=== PATIENT | male | born 1965 | race Caucasian/White ===

== ENCOUNTER 2018-10-29 01:38 | Emergency (ER) | payer OTHER ==
[2018-10-29 01:42] VITALS: BP 169/113
--- NOTE | 2018-10-29 01:43 | ER Report ---
History and Physical Time Seen By MD: 01:43 HPI/ROS CHIEF COMPLAINT: Burning with urination HISTORY OF PRESENT ILLNESS: 33 year-old male presents to the ER with hematuria. Patient was seen at urgent care earlier and had a urinalysis done which was unremarkable for evidence of infection. Patient has continued urinary burning. He states pain during urination. He notes rissa clots and hematuria. She notes no fever or chills. Patient denies back pain. Patient denies nausea or vomiting. REVIEW OF SYSTEMS: Respiratory: No cough, no dyspnea. Cardiovascular: No chest pain, no palpitations. Gastrointestinal: No vomiting, no abdominal pain. Musculoskeletal: No back pain. Allergies: Coded Allergies: No Known Drug Allergies (Unverified , 10/29/18) Home Meds Active Scripts Phenazopyridine Hcl (PHENAZOPYRIDINE HCL) 200 Mg Tablet, 200 MG PO TID PRN for urinary burning, #12 TAB Prov:MARCUS DAI DO 10/29/18 Cefuroxime Axetil (CEFUROXIME) 500 Mg Tablet, 500 MG PO BID for infection, #14 TAB Prov:MARCUS DAI 10/29/18 Hydrocodone Bit/Acetaminophen (HYDROCODON-ACETAMINOPHEN 5-325) 1 Each Tablet, 1 EACH PO Q4-6H PRN for PAIN, #8 TAKE ONE TABLET BY MOUTH EVERY 4-6 HOURS NEEDED FOR PAIN Prov:MARCUS DAI 10/29/18 Reviewed Nurses Notes: Yes Old Medical Records Reviewed: Yes Constitutional Vital Sign - Last 24 Hours 10/29/18 01:42 Temp 98.6 Pulse 94 Resp 16 B/P (MAP) 169/113 Pulse Ox 93 O2 Delivery Room Air Physical Exam General appearance: Alert no distress. Vital signs stable, afebrile, pulse ox normal Respiratory: Chest is non tender, lungs are clear to auscultation. Cardiac: Regular rate and rhythm Genitourinary, circumcised male genitalia without meatal redness or discharge. No testicular pain. There is a small right inguinal hernia. There is no tenderness on palpation of the shaft of the penis. DIFFERENTIAL DIAGNOSIS: After history and physical exam differential diagnosis was considered for urinary tract infection, renal stone, bladder cancer Medical Decision Making Data Points Laboratory Hematology Test 10/29/18 00:00 Urine Color Kathryn Urine Clarity Cloudy Urine pH 5.0 pH (4.8-9.5) Urine Specific [place] 1.019 Urine Protein 100 mg/dL (NEGATIVE) Urine Glucose (UA) Negative mg/dL (NEGATIVE) Urine Ketones Negative mg/dL (NEGATIVE) Urine Blood Large (NEGATIVE) Urine Nitrite Positive (NEGATIVE) Urine Bilirubin Negative (NEGATIVE) Urine Urobilinogen Negative mg/dL (0.2-1.9) Urine Leukocyte Esterase Large (NEGATIVE) Urine RBC 1904 /HPF (0-2/HPF) Urine WBC 861 /HPF (0-5/HPF) Urine WBC Clumps Many /HPF Urine Squamous Epithelial Cells None /LPF (</=FEW) Urine Transitional Epithelial Cells Many /LPF (NONE-FEW) Urine Bacteria Moderate /HPF (NONE-FEW) Urine Mucus Few /HPF (NONE-FEW) Chemistry Test 10/29/18 00:00 Urine Color Kathryn Urine Clarity Cloudy Urine pH 5.0 pH (4.8-9.5) Urine Specific [place] 1.019 Urine Protein 100 mg/dL (NEGATIVE) Urine Glucose (UA) Negative mg/dL (NEGATIVE) Urine Ketones Negative mg/dL (NEGATIVE) Urine Blood Large (NEGATIVE) Urine Nitrite Positive (NEGATIVE) Urine Bilirubin Negative (NEGATIVE) Urine Urobilinogen Negative mg/dL (0.2-1.9) Urine Leukocyte Esterase Large (NEGATIVE) Urine RBC 1904 /HPF (0-2/HPF) Urine WBC 861 /HPF (0-5/HPF) Urine WBC Clumps Many /HPF Urine Squamous Epithelial Cells None /LPF (</=FEW) Urine Transitional Epithelial Cells Many /LPF (NONE-FEW) Urine Bacteria Moderate /HPF (NONE-FEW) Urine Mucus Few /HPF (NONE-FEW) Urinalysis Test 10/29/18 00:00 Urine Color Kathryn Urine Clarity Cloudy Urine pH 5.0 pH (4.8-9.5) Urine Specific [place] 1.019 Urine Protein 100 mg/dL (NEGATIVE) Urine Glucose (UA) Negative mg/dL (NEGATIVE) Urine Ketones Negative mg/dL (NEGATIVE) Urine Blood Large (NEGATIVE) Urine Nitrite Positive (NEGATIVE) Urine Bilirubin Negative (NEGATIVE) Urine Urobilinogen Negative mg/dL (0.2-1.9) Urine Leukocyte Esterase Large (NEGATIVE) Urine RBC 1904 /HPF (0-2/HPF) Urine WBC 861 /HPF (0-5/HPF) Urine WBC Clumps Many /HPF Urine Squamous Epithelial Cells None /LPF (</=FEW) Urine Transitional Epithelial Cells Many /LPF (NONE-FEW) Urine Bacteria Moderate /HPF (NONE-FEW) Urine Mucus Few /HPF (NONE-FEW) ED Course/Re-evaluation ED Course Patient was minute to an examination room. H&P was done. The differential diagnoses was considered. On conical examination. Patient has a benign exam. A urinalysis is sent off which shows gross infection and hematuria. A urinary cultures ordered. Patient be covered with Ceftin antibiotic. He is also given Pyridium and Lortab for symptomatically relief. 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 He is cautioned not to take the Lortab 6 hours prior to driving. Patient's advised to follow-up with his primary care doctor upon returning home. Decision to Disposition Date: Oct 29, 2018 Decision to Disposition Time: 02:51 Depart Departure Latest Vital Signs Vital Signs Date Time Temp Pulse Resp B/P (MAP) Pulse Ox O2 Delivery O2 Flow Rate FiO2 10/29/18 01:42 98.6 94 16 169/113 93 Room Air Impression: Primary Impression: Urinary tract infection Condition: Improved Disposition: HOME OR SELF-CARE New Scripts Phenazopyridine Hcl (PHENAZOPYRIDINE HCL) 200 Mg Tablet 200 MG PO TID PRN for urinary burning, #12 TAB Prov: MARCUS DAI DO 10/29/18 Cefuroxime Axetil (CEFUROXIME) 500 Mg Tablet 500 MG PO BID for infection, #14 TAB Prov: MARCUS DAI DO 10/29/18 Hydrocodone Bit/Acetaminophen (HYDROCODON-ACETAMINOPHEN 5-325) 1 Each Tablet 1 EACH PO Q4-6H PRN for PAIN, #8 TAKE ONE TABLET BY MOUTH EVERY 4-6 HOURS NEEDED FOR PAIN Prov: MARCUS DAI DO 10/29/18 Patient Instructions: Urinary Tract Infection in Men (ED) Additional Instructions: Take ibuprofen 200 mg 3 tablets 3 times a day with food Plenty of fluids to flush the infection out Take Azo-Standard or Uristat 200 mg 3 times daily Follow-up with your primary care doctor upon returning home. Problem Qualifiers Primary Impression: Urinary tract infection Urinary tract infection type: acute cystitis Hematuria presence: with hematuria Qualified Codes: N30.01 - Acute cystitis with hematuria MARCUS DAI DO Oct 29, 2018 01:43
[2018-10-29] MEDS ORDERED: PHENAZOPYRIDINE 200 MG TAB PO ONE (01:55)
[2018-10-29] MEDS ORDERED: APAP/HYDROCODONE 325/5 TAB PO ONE (01:55)
[2018-10-29] MEDS ORDERED: CEFUROXIME AXETIL 250 MG TAB PO ONE (02:50)
[2018-10-29] MEDS ORDERED: LOR5/325 PO (02:53)
[2018-10-29] MEDS ORDERED: CEFU500T10 PO (02:53)
[2018-10-29] MEDS ORDERED: PHENAZOPYRIDINE 200 MG TAB TH 2 TAB/BOTTLE PO ONE (03:15)
[2018-10-29] MEDS ORDERED: PHEN200T32 PO (03:19)
--- NOTE | 2018-10-29 03:21 | RADIOLOGY IMAGING REPORT ---
FACILITY: [facility] - [place] PATIENT NAME: Mark Ross : 1965 MR: [id number] V: [id number] EXAM DATE: ORDERING PHYSICIAN: MARCUS DAI TECHNOLOGIST: [place] [facility] [place] Patient: Mark Ross : 1965 Visit/Account:[id number] Date of Sevice: 10/29/2018 INDICATION: Pain, history of urinary tract infections. Rule out stone. EXAM DATE: 10/29/2018 2:02 AM COMPARISON: None. FINDINGS: 2 AP supine images of the abdomen. One of the 2 images is limited by motion artifact. No well-demonstrated calcific densities suspiciou s for renal or ureteral calculus. Lung bases are clear. Heart size is normal. Bowel gas pattern is nonobstructive. No pneumatosis, pneumoperitoneum or portal venous gas. No eviden ce of large volume ascites or mass. No acute osseous abnormality. IMPRESSION: Limited examination with no apparent acute abnormality or suspected renal/ureteral stone. Report Dictated By: Og Alba MD at 10/29/2018 2:56 AM Report E-Signed By: Og Alba MD at 10/29/2018 2:59 AM WSN:[id number]
== END 2018-10-29 03:23 | disposition home or self-care (01) ==
LOC: ER 02:01
DX: N30.01 Acute cystitis with hematuria (principal)
CPT/HCPCS: 74018; 81001; 87077; 87088; 87186; 99283